=== PATIENT | male | born 1980 | race Caucasian/White ===

== ENCOUNTER 2021-12-12 20:09 | Emergency (ER) | payer BC ==
--- NOTE | 2021-12-12 20:16 | ERPHSYRPT ---
- History of Present Illness Time Seen by Provider: 12/12/21 20:16 Source: patient, family Exam Limitations: no limitations Physician History: This is a morbidly obese 41-year-old white male who is a vch-haubhdo-pbnyycijc diabetic and has had for years left upper quadrant fullness/tightness after eating. He has had bloating and belching and gassiness symptoms within 20 to 30 minutes after he eats. He has a history of hypertension but took himself off of his blood pressure medicine which he thinks was lisinopril, several years ago. He has an appointment to see a new primary care provider in December 2021. In the last few weeks he has noticed more frequent and more intense episodes of left upper quadrant and left lower chest tightness and fullness sensation with or without eating. In the last 3 to 4 days he has had associated shortness of breath and sleeps in an upright position in a recliner. He has not had a cough. He has no anterior chest pain. He has not had a fever. He has had no nausea vomiting or diarrhea symptoms. Patient denies headache. Patient denies visual changes. Timing/Duration: day(s) (Associated shortness of breath 3 to 4 days), week(s) (Worsening intermittent left upper quadrant tightness in the last 3 weeks), other (Symptoms of left upper quadrant left lower chest tightness for several years.) Severity: mild (To moderate) Associated Symptoms: abdominal pain (Left upper quadrant tightness), shortness of breath, No nausea, No vomiting, No cough, No fever Allergies/Adverse Reactions: No Known Drug Allergies Allergy (Verified 12/12/21 20:32) Home Medications: Aspirin EC 81 mg [Ecotrin 81 mg] 81 mg PO DAILY 12/12/21 [History] Metformin HCl 500 mg [Glucophage 500 MG] 500 mg PO HS 12/12/21 [History] [place]-3 Fatty Acids/Fish Oil [Fish Oil 1,000 mg Capsule] 1,000 mg PO DAILY 12/12/21 [History] Travel Risk - International Travel Have you traveled outside of the country in past 3 weeks: No - Coronavirus Screening Are you exhibiting any of the following symptoms?: No Close contact with a COVID-19 positive Pt in past 14-21 Days: No - Review of Systems Constitutional: No Symptoms Eyes: No Symptoms Ears, Nose, & Throat: No Symptoms Respiratory: No Symptoms Cardiac: No Symptoms Abdominal/Gastrointestinal: Abdominal Pain (Upper quadrant tightness) Genitourinary Symptoms: No Symptoms Musculoskeletal: No Symptoms Skin: No Symptoms Neurological: No Symptoms Psychological: No Symptoms Endocrine: No Symptoms Hematologic/Lymphatic: No Symptoms Immunological/Allergic: No Symptoms All Other Systems: Reviewed and Negative - Past Medical History Pertinent Past Medical History: Yes - Past Surgical History Past Surgical History: Yes - Nursing Vital Signs Nursing Vital Signs: Initial Vital Signs Temperature 99.8 F 12/12/21 20:13 Pulse Rate 109 H 12/12/21 20:13 Respiratory Rate 24 12/12/21 20:13 Blood Pressure 267/141 12/12/21 20:13 O2 Sat by Pulse Oximetry 95 12/12/21 20:13 Pain Scale Pain Intensity 4 - Physical Exam General Appearance: no apparent distress, alert, obese Eye Exam: PERRL/EOMI, eyes nml inspection Ears, Nose, Throat Exam: normal ENT inspection, moist mucous membranes Neck Exam: normal inspection, non-tender, supple, full range of motion Respiratory Exam: normal breath sounds, chest tenderness (Lower chest wall tightness), lungs clear, airway intact, No respiratory distress Cardiovascular Exam: normal peripheral pulses, tachycardia Gastrointestinal/Abdomen Exam: soft, normal bowel sounds, No tenderness Rectal Exam: not done Back Exam: normal inspection, normal range of motion, No CVA tenderness, No vertebral tenderness Extremity Exam: normal range of motion, pelvis stable, other (The skin of bilateral lower extremities is dry and cracking. He also has evidence of chronic venous stasis disease. 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 No comparison twelve-lead EKG available) Ordered Tests: Active Orders 24 hr Category Date Time Status EKG-ER Only STAT Care 12/12/21 20:24 Active IV Insertion STAT Care 12/12/21 20:24 Active CHEST 1 VIEW (PORTABLE) Stat Exams 12/12/21 20:25 Taken CHEST WITH CONTRAST [CT] Stat Exams 12/12/21 21:27 Taken AMYLASE Stat Lab 12/12/21 20:35 Completed CBC W DIFF Stat Lab 12/12/21 20:35 Completed CMP Stat Lab 12/12/21 20:35 Completed D-DIMER QUANTITATIVE Stat Lab 12/12/21 20:35 Completed LIPASE Stat Lab 12/12/21 20:35 Completed Lactic Acid Stat Lab 12/12/21 20:50 Completed TROPONIN Q4H Lab 12/12/21 20:35 Completed TROPONIN Q4H Lab 12/13/21 00:30 Ordered TROPONIN Q4H Lab 12/13/21 04:30 Ordered Respiratory Therapy Assessment DAILY RT 12/12/21 22:38 Active Medication Summary Discontinued Medications Generic Name Dose Route Start Last Admin Trade Name Freq PRN Reason Stop Dose Admin Albuterol Sulfate Confirm 12/12/21 22:29 Albuterol Sulfate 2.5 Mg/3 Ml Neb Administered 12/12/21 22:30 Dose 2.5 mg IH .STK-MED ONE Albuterol Sulfate 2.5 mg 12/12/21 22:38 12/12/21 22:39 Albuterol Sulfate 2.5 Mg/3 Ml Neb IH 12/12/21 22:39 2.5 mg STAT ONE Administration Enalaprilat 1.25 mg 12/12/21 22:27 12/12/21 23:12 Enalaprilat 2.5 Mg Injection IV 12/12/21 22:28 1.25 mg STAT ONE Administration Enalaprilat Confirm 12/12/21 23:10 Enalaprilat 2.5 Mg Injection Administered 12/12/21 23:11 Dose 2.5 mg IV .STK-MED ONE Sodium Chloride 500 mls @ 500 mls/hr 12/12/21 21:26 12/12/21 22:16 Sodium Chloride 0.9% 500 Ml IV 12/12/21 22:25 500 mls/hr .Q1H ONE Administration Sodium Chloride Confirm 12/12/21 21:56 Sodium Chloride 0.9% 500 Ml Administered 12/12/21 21:57 Dose 500 mls @ ud IV .STK-MED ONE Metoprolol Tartrate 5 mg 12/12/21 21:18 12/12/21 21:43 Metoprolol Tartrate 5 Mg/5 Ml Vial IV 12/12/21 21:19 5 mg STAT ONE Administration Metoprolol Tartrate Confirm 12/12/21 21:42 Metoprolol Tartrate 5 Mg/5 Ml Vial Administered 12/12/21 21:43 Dose 5 mg IV .STK-MED ONE Lab/Rad Data: Laboratory Result Diagrams 12/12/21 20:35 12/12/21 20:35 Laboratory Results 12/12/21 12/12/21 12/12/21 Range/Units 20:50 20:35 20:35 WBC (4.0-10.5) x10^3/uL RBC (4.1-5.6) x10^6/uL Hgb (12.5-18.0) g/dL Hct (42-50) % MCV (78-100) fL MCH (26-32) pg MCHC (32-36) g/dL RDW (11.5-14.0) % Plt Count (150-450) x10^3/uL MPV (7.5-11.0) fL Gran % (36.0-66.0) % Immature Gran % (Auto) (0.00-0.4) % Nucleat RBC Rel Count (0.00-0.1) % Eos # (Auto) (0-0.5) x10^3/uL Immature Gran # (Auto) (0.00-0.03) x10^3u/L Absolute Lymphs (auto) (1.0-4.6) x10^3/uL Absolute Monos (auto) (0.0-1.3) x10^3/uL Absolute Nucleated RBC (0.00-0.01) x10^3u/L Lymphocytes % (24.0-44.0) % Monocytes % (0.0-12.0) % Eosinophils % (0.00-5.0) % Basophils % (0.0-0.4) % Absolute Granulocytes (1.4-6.9) x10^3/uL Basophils # (0-0.4) x10^3/uL D-Dimer 1.07 H* (0.0-0.50) mg/L Sodium (137-145) mmol/L Potassium (3.5-5.1) mmol/L Chloride (98-107) mmol/L Carbon Dioxide (22-30) mmol/L Anion Gap (5-15) MEQ/L BUN (9-20) mg/dL Creatinine (0.66-1.25) mg/dL Estimated GFR ML/MIN Glucose (74-106) mg/dL Lactic Acid 1.3 (0.4-2.0) Calcium (8.4-10.2) mg/dL Total Bilirubin (0.2-1.3) mg/dL AST (17-59) U/L ALT (0-50) U/L Alkaline Phosphatase (38-126) U/L Troponin I 0.019 (0.000-0.034) ng/mL Serum Total Protein (6.3-8.2) g/dL Albumin (3.5-5.0) g/dL Amylase (30-110) U/L Lipase (23-300) U/L Influenza Type A Ag (NEGATIVE) Influenza Type B Ag (NEGATIVE) RSV (PCR) (Negative) SARS-CoV-2 (PCR) (NEGATIVE) 12/12/21 12/12/21 12/12/21 Range/Units 20:35 20:35 20:35 WBC 9.0 (4.0-10.5) x10^3/uL RBC 5.06 (4.1-5.6) x10^6/uL Hgb 15.0 (12.5-18.0) g/dL Hct 44.2 (42-50) % MCV 87.4 (78-100) fL MCH 29.6 (26-32) pg MCHC 33.9 (32-36) g/dL RDW 12.1 (11.5-14.0) % Plt Count 216 (150-450) x10^3/uL MPV 12.0 H (7.5-11.0) fL Gran % 67.0 H (36.0-66.0) % Immature Gran % (Auto) 0.3 (0.00-0.4) % Nucleat RBC Rel Count 0.0 (0.00-0.1) % Eos # (Auto) 0.45 (0-0.5) x10^3/uL Immature Gran # (Auto) 0.03 (0.00-0.03) x10^3u/L Absolute Lymphs (auto) 1.55 (1.0-4.6) x10^3/uL Absolute Monos (auto) 0.85 (0.0-1.3) x10^3/uL Absolute Nucleated RBC 0.00 (0.00-0.01) x10^3u/L Lymphocytes % 17.2 L (24.0-44.0) % Monocytes % 9.4 (0.0-12.0) % Eosinophils % 5.0 (0.00-5.0) % Basophils % 1.1 (0.0-0.4) % Absolute Granulocytes 6.05 (1.4-6.9) x10^3/uL Basophils # 0.10 (0-0.4) x10^3/uL D-Dimer (0.0-0.50) mg/L Sodium 133 L (137-145) mmol/L Potassium 3.4 L (3.5-5.1) mmol/L Chloride 97 L (98-107) mmol/L Carbon Dioxide 33 H (22-30) mmol/L Anion Gap 7.0 (5-15) MEQ/L BUN 16 (9-20) mg/dL Creatinine 0.91 (0.66-1.25) mg/dL Estimated GFR > 60.0 ML/MIN Glucose 377 H (74-106) mg/dL Lactic Acid (0.4-2.0) Calcium 8.6 (8.4-10.2) mg/dL Total Bilirubin 0.90 (0.2-1.3) mg/dL AST 46 (17-59) U/L ALT 79 H (0-50) U/L Alkaline Phosphatase 147 H (38-126) U/L Troponin I (0.000-0.034) ng/mL Serum Total Protein 7.4 (6.3-8.2) g/dL Albumin 3.9 (3.5-5.0) g/dL Amylase 51 (30-110) U/L Lipase 50 (23-300) U/L Influenza Type A Ag NEGATIVE (NEGATIVE) Influenza Type B Ag NEGATIVE (NEGATIVE) RSV (PCR) NEGATIVE (Negative) SARS-CoV-2 (PCR) NEGATIVE (NEGATIVE) - Progress Progress Note: 12/12/21 22:41 CTA of the chest shows some mildly enlarged mediastinal nodes. There is no evidence of pulmonary embolus. There is no acute cardiopulmonary process. 12/12/21 22:43 Chest x-ray shows no acute cardiopulmonary process. 12/12/21 23:29 Patient states that he is feeling better. He does not want to be admitted into the hospital or transferred to a different hospital. His blood pressure is improving. Patient states that he has to work and he works 7 days a week. I think this is reasonable. His blood pressure is coming down nicely and he is feeling better. Symptomatically he has improved. Counseled pt/family regarding: lab results, diagnosis, need for follow-up, rad results - Departure Departure Disposition: Home Clinical Impression: Hypertensive urgency, Morbid obesity, Hyperglycemia Condition: Stable Critical Care Time: Yes Critical Care Time(excluding separately billable procedures): Critical 30-74 mins (40 minutes) Referrals: DOCTOR,NO FAMILY [Primary Care Provider] - Follow up/PCP as directed Additional Instructions: Take your medication as prescribed. Monitor and control your blood sugar levels as instructed by your prescribing outpatient provider. Keep your appointment with your new outpatient provider January 09, 2022. Keep a log of your blood pressure measurements 3 times a day (morning noon and night) for 1 week. Take this log recording to your outpatient provider appointment. Prescriptions: Amlodipine Besylate 5 mg [Norvasc 5 mg] 5 mg PO DAILY 10 Days #10 tablet
[2021-12-12 20:42] LABS: Absolute Neutrophil Ct (ANC) 6.05 x10^3/uL (1.4-6.9); Eosinophil (Absolute #) 0.45 x10^3/uL (0-0.5); Hematocrit 44.2 % (42-50); Lymphocyte (Absolute #) 1.55 x10^3/uL (1.0-4.6); Lymphocytes % 17.2 % (24.0-44.0); Mean Cell Volume 87.4 fL (78-100); Mean Corpuscular Hemoglobin 29.6 pg (26-32); Mean Corpuscular Hgb Concent. 33.9 g/dL (32-36); Monocyte (Absolute #) 0.85 x10^3/uL (0.0-1.3); Monocytes % 9.4 % (0.0-12.0); Platelet Count 216 x10^3/uL (150-450); Red Blood Count 5.06 x10^6/uL (4.1-5.6); Red Cell Distribution Width 12.1 % (11.5-14.0)
[2021-12-12 20:56] LABS: ALBUMIN 3.9 g/dL (3.5-5.0); ALKALINE PHOSPHATASE 147 U/L (38-126); AMYLASE 51 U/L (30-110); BLOOD UREA NITROGEN 16 mg/dL (9-20); CHLORIDE 97 mmol/L (98-107); Calcium 8.6 mg/dL (8.4-10.2); Carbon Dioxide 33 mmol/L (22-30); Creatinine 1 0.91 mg/dL (0.66-1.25); EST GLOMERULAR FILTRATION RATE > 60.0 ML/MIN; Glucose 377 mg/dL (74-106); LIPASE 50 U/L (23-300); Potassium 3.4 mmol/L (3.5-5.1); SGOT/AST 46 U/L (17-59); SGPT/ALT 79 U/L (0-50); SODIUM 133 mmol/L (137-145); Total Protein 7.4 g/dL (6.3-8.2)
[2021-12-12 21:20] LABS: INFLUENZA A NEGATIVE (NEGATIVE); INFLUENZA B NEGATIVE (NEGATIVE); RESPIRATORY SYNCTIAL VIRUS NEGATIVE (Negative); SARS-CoV-2 Xpert Express NEGATIVE (NEGATIVE)
[2021-12-12] MEDS ORDERED: LOPRESSOR INJECTION IV ONE (21:42)
[2021-12-12] MEDS: LOPRESSOR INJECTION IV ONE (21:43)
[2021-12-12] MEDS ORDERED: Sodium Chloride 0.9% 500 ML 500 ML IV ONE (21:56)
[2021-12-12] MEDS: Sodium Chloride 0.9% 500 ML 500 ML IV ONE (22:16)
[2021-12-12] MEDS ORDERED: PROVENTIL 2.5 MG/3 ML NEB IH ONE (22:29)
[2021-12-12] MEDS: PROVENTIL 2.5 MG/3 ML NEB IH ONE (22:39)
[2021-12-12] MEDS ORDERED: ENALAPRILAT 2.5 MG INJECTION IV ONE (23:10)
[2021-12-12] MEDS: ENALAPRILAT 2.5 MG INJECTION IV ONE (23:12)
[2021-12-13 00:27] VITALS: BP 174/102; PULSE 96; O2SAT 96
--- NOTE | 2021-12-13 08:55 | XRAY ---
Indication: Short of breath. Elevated d-dimer. Multiple contiguous axial images obtained through the chest using 100 cc Isovue 370 contrast and PE protocol. Comparison: None Adequate opacification of the pulmonary arteries to include the lobar and segmental branches. No pulmonary embolus. Heart not enlarged. Aorta is normal in course and caliber. Several prominent mediastinal and bilateral hilar lymph nodes. Largest is subcarinal measuring 2.5 x 4.6 cm. Adenopathy may be reactive though malignancy not completely excluded. Incidental small hiatal hernia. Lungs inflated with minimal bibasilar interstitial edema. No suspicious pulmonary mass, infiltrate, consolidation, or effusion. Bony thorax intact with mild/moderate degenerative changes throughout the spine. Limited upper abdomen demonstrates fatty liver. Impression: 1. Negative pulmonary embolus. 2. Prominent mediastinal/hilar adenopathy either reactive versus malignancy. 3. Minimal interstitial edema. Negative for CHF or pneumonic process. 4. Incidental small hiatal hernia, degenerative spondylosis, and fatty liver.
--- NOTE | 2021-12-13 08:56 | XRAY ---
Indication: Short of breath. Comparison: None Portable chest demonstrates interstitial edema without consolidation/large effusion. Heart borderline enlarged. Bony thorax intact with mild degenerative changes.
== END 2021-12-13 00:25 | disposition home or self-care (01) ==
LOC: ED 20:09
DX: I16.0 Hypertensive urgency (principal); E11.65 Type 2 diabetes mellitus with hyperglycemia; R10.12 Left upper quadrant pain; E66.01 Morbid (severe) obesity due to excess calories; R07.89 Other chest pain; R59.9 Enlarged lymph nodes, unspecified; R06.02 Shortness of breath; Z79.899 Other long term (current) drug therapy
CPT/HCPCS: 0241U; 36000; 36415; 71045; 71260; 80053; 82150; 83605; 83690; 84484; 85025; 85379; 93005; 94640; 96374; 96375; 99291; 99284; J7609; A9270-GY

== ENCOUNTER 2021-12-13 14:55 | Observation (INO) | payer BC ==
[2021-12-13] MEDS ORDERED: TRANDATE 20 MG/4 ML SYRINGE IV ONE ×4 (15:17→16:17)
[2021-12-13] MEDS ORDERED: Lasix 40 MG/4 ML IV ONE (15:18)
[2021-12-13] MEDS ORDERED: Lasix 40 MG/4 ML ONE (15:22)
[2021-12-13 15:26] LABS: Absolute Neutrophil Ct (ANC) 5.22 x10^3/uL (1.4-6.9); Eosinophil % 5.4 % (0.00-5.0); Eosinophil (Absolute #) 0.45 x10^3/uL (0-0.5); Hematocrit 43.3 % (42-50); Hemoglobin 14.5 g/dL (12.5-18.0); Lymphocytes % 20.5 % (24.0-44.0); Mean Cell Volume 87.5 fL (78-100); Mean Corpuscular Hemoglobin 29.3 pg (26-32); Mean Corpuscular Hgb Concent. 33.5 g/dL (32-36); Mean Platelet Volume 11.5 fL (7.5-11.0); Monocyte (Absolute #) 0.81 x10^3/uL (0.0-1.3); Monocytes % 9.8 % (0.0-12.0); Neutrophil % 62.9 % (36.0-66.0); Platelet Count 205 x10^3/uL (150-450); Red Blood Count 4.95 x10^6/uL (4.1-5.6); Red Cell Distribution Width 12.3 % (11.5-14.0); White Blood Count 8.3 x10^3/uL (4.0-10.5)
--- NOTE | 2021-12-13 15:32 | ERPHSYRPT ---
- History of Present Illness Source: patient Exam Limitations: no limitations Patient Subjective Stated Complaint: PT states "I was here last night and I do not feel any better. I cannot breath and I am not any better." Triage Nursing Assessment: Pt presented alert and oriented X3, skin pwd. Pt ambulates with an upright steady gait, able to speak in clear full sentences pt unable to sit in bed. PT slightly tachypneic. Physician History: 41 yo WM who was seen and released from the ER last night presents for increasing dyspnea. Pt had a neg CTA chest last night. He has a h/o DM, morbid obesity, and hypertension. Pt has not taken any blood pressure meds x 5 years because of side effects. Blood pressure markedly elevated upon arrival, and he did not start the meds prescribed to him. He has chronic L lateral chest pain which is minimal and not accompanied by dyspnea, nausea, vomiting, or diaphoresis. Cough/coryza/melena/hematochezia/dysuria/hematuria/fever are all denied. states that pt becomes apneic when sleeping. Timing/Duration: other (Dyspnea x 2 wks) Activities at Onset: sleep Severity of Dyspnea-Max: moderate Severity of Dyspnea-Current: moderate Possible Cause: occasional episodes Modifying Factors: Improves With: lying down Associated Symptoms: chest pain/discomfort, edema, insomnia, No fever Allergies/Adverse Reactions: No Known Drug Allergies Allergy (Verified 12/13/21 15:07) Home Medications: Aspirin EC 81 mg [Ecotrin 81 mg] 81 mg PO DAILY 12/12/21 [History] Metformin HCl 500 mg [Glucophage 500 MG] 500 mg PO HS 12/12/21 [History] [place]-3 Fatty Acids/Fish Oil [Fish Oil 1,000 mg Capsule] 1,000 mg PO DAILY 12/12/21 [History] Hx Tetanus, Diphtheria Vaccination/Date Given: No Hx Influenza Vaccination/Date Given: No Hx Pneumococcal Vaccination/Date Given: No Immunizations Up to Date: Yes Travel Risk - International Travel Have you traveled outside of the country in past 3 weeks: No - Coronavirus Screening Are you exhibiting any of the following symptoms?: Yes Symptoms: Cough: New Onset, Shortness of Breath Close contact with a COVID-19 positive Pt in past 14-21 Days: No - Vaccine Status Have you recieved a Covid-19 vaccination: No - Review of Systems Constitutional: No Symptoms, Malaise Eyes: No Symptoms Ears, Nose, & Throat: No Symptoms Respiratory: No Symptoms, Dyspnea Cardiac: No Symptoms, Chest Pain Abdominal/Gastrointestinal: No Symptoms Genitourinary Symptoms: No Symptoms Musculoskeletal: No Symptoms Skin: No Symptoms Neurological: No Symptoms Psychological: No Symptoms Endocrine: No Symptoms Hematologic/Lymphatic: No Symptoms Immunological/Allergic: No Symptoms - Past Medical History Pertinent Past Medical History: Yes Cardiac History: Hypertension Endocrine Medical History: Diabetes Type II GI Medical History: GERD Other Medical History: sleep apnea - Past Surgical History Past Surgical History: No - Social History Smoking Status: Never smoker Exposure to second hand smoke: No Drug Use: none Patient Lives Alone: No Significant Family History: no pertinent family hx - Nursing Vital Signs Nursing Vital Signs: Initial Vital Signs Temperature 97.1 F 12/13/21 14:56 Pulse Rate 105 H 12/13/21 14:56 Respiratory Rate 24 12/13/21 14:56 Blood Pressure 204/130 12/13/21 14:56 O2 Sat by Pulse Oximetry 92 L 12/13/21 14:56 Pain Scale Pain Intensity 0 Tachy/hypertension/Borderline sats - Physical Exam General Appearance: mild distress, anxiety Eye Exam: PERRL/EOMI, eyes nml inspection Ears, Nose, Throat Exam: hearing grossly normal, normal ENT inspection, normal pharynx, No abnormal TM (R), No abnormal TM (L) Neck Exam: normal inspection, non-tender, supple, No Brudzinski, No Kernig's, No meningismus Respiratory Exam: airway intact, diminished breath sounds (Decreased BS at bases B) Cardiovascular/Chest Exam: normal heart sounds, tachycardia, No murmur Abdominal/Gastrointestinal Exam: soft, normal bowel sounds, No tenderness Extremity Exam: swelling (1+ B pre-tibial edema) Neurologic Exam: alert, oriented x 3, cooperative, 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, normal mood/affect, nml cerebellar function, nml station & gait, sensation nml Skin Exam: other (Chronic venous stasis changes B pre-tibial areas) Lymphatic Exam: No adenopathy SpO2 Interpretation: borderline oxygenation SpO2: 93 O2 Delivery: Room Air - Course Nursing assessment & vital signs reviewed: Yes EKG Interpreted by Me: RATE (Sinus tach/Rate 101/RBBB/LAFB/Prolonged QTc/Nonspecific ST-T wave changes/No change compared to 12/12/21) - Radiology Exams Chest X-ray Interpretation: Discussed w/ radiologist (Worsening pulmonary edema/R base infiltrate-atelectasis) Ordered Tests: Active Orders 24 hr Category Date Time Status EKG-ER Only STAT Care 12/13/21 15:08 Completed IV Insertion STAT Care 12/13/21 15:08 Completed Consistent Carbohydrate Diet 2000 Calorie Diet 12/14/21 Breakfast Active CHEST 1 VIEW (PORTABLE) Stat Exams 12/13/21 15:08 Completed CBC AM.LAB Lab 12/14/21 04:00 Ordered CBC W DIFF Stat Lab 12/13/21 15:15 Completed CMP AM.LAB Lab 12/15/21 04:00 Ordered CMP Stat Lab 12/13/21 15:15 Completed MAGNESIUM Stat Lab 12/13/21 15:15 Completed NT PRO BNP AM.LAB Lab 12/14/21 04:00 Ordered NT PRO BNP Stat Lab 12/13/21 15:15 Completed PROTIME WITH INR Stat Lab 12/13/21 15:15 Completed PTT Stat Lab 12/13/21 15:15 Completed TROPONIN Q4H Lab 12/13/21 15:21 Completed TROPONIN Q4H Lab 12/13/21 20:30 Ordered TROPONIN Q4H Lab 12/14/21 00:30 Ordered Transfer Order Routine Transfer 12/13/21 Completed Medication Summary Generic Name Dose Route Start Last Admin Trade Name Freq PRN Reason Stop Dose Admin Furosemide 40 mg 12/14/21 10:00 Furosemide 40 Mg/4 Ml Vial IV 01/13/22 09:59 BID DIURETIC LASHELL Insulin Human Lispro 0 unit 12/13/21 17:12 Insulin Lispro 1 Unit SQ 01/12/22 17:11 UD PRN HYPERGLYCEMIA Losartan Potassium 50 mg 12/13/21 22:00 Losartan Potassium 50 Mg Tablet PO 01/12/22 21:59 BID LASHELL Discontinued Medications Generic Name Dose Route Start Last Admin Trade Name Freq PRN Reason Stop Dose Admin Enoxaparin Sodium 40 mg 12/13/21 17:17 12/13/21 17:30 Enoxaparin Sodium 40 Mg/0.4 Ml Syringe SQ 12/13/21 17:18 40 mg STAT ONE Administration Enoxaparin Sodium Confirm 12/13/21 17:29 Enoxaparin Sodium 80 Mg/0.8 Ml Syringe Administered 12/13/21 17:30 Dose 80 mg SQ .STK-MED ONE Furosemide 40 mg 12/13/21 15:18 12/13/21 15:23 Furosemide 40 Mg/4 Ml Vial IV 12/13/21 15:19 40 mg STAT ONE Administration Furosemide Confirm 12/13/21 15:22 Furosemide 40 Mg/4 Ml Vial Administered 12/13/21 15:23 Dose 40 mg .ROUTE .STK-MED ONE Labetalol HCl 20 mg 12/13/21 15:17 12/13/21 15:23 Labetalol Hcl 20 Mg/4 Ml Disp.Syringe IV 12/13/21 15:18 20 mg STAT ONE Administration Labetalol HCl Confirm 12/13/21 15:22 Labetalol Hcl 20 Mg/4 Ml Disp.Syringe Administered 12/13/21 15:23 Dose 20 mg IV .STK-MED ONE Labetalol HCl 40 mg 12/13/21 16:13 12/13/21 17:07 Labetalol Hcl 20 Mg/4 Ml Disp.Syringe IV 12/13/21 16:14 Not Given STAT ONE Labetalol HCl Confirm 12/13/21 16:17 Labetalol Hcl 20 Mg/4 Ml Disp.Syringe Administered 12/13/21 16:18 Dose 40 mg IV .STK-MED ONE Lisinopril 10 mg 12/13/21 17:11 12/13/21 17:31 Lisinopril 10 Mg Tablet PO 12/13/21 17:12 Not Given STAT STA Lisinopril 10 mg 12/14/21 10:00 Lisinopril 10 Mg Tablet PO 01/13/22 09:59 DAILY [facility] Losartan Potassium 50 mg 12/14/21 10:00 Losartan Potassium 50 Mg Tablet PO 01/13/22 09:59 DAILY [facility] Lab/Rad Data: Laboratory Result Diagrams 12/13/21 15:15 12/13/21 15:15 Laboratory Results 12/13/21 12/13/21 12/13/21 Range/Units 15:21 15:15 15:15 WBC (4.0-10.5) x10^3/uL RBC (4.1-5.6) x10^6/uL Hgb (12.5-18.0) g/dL Hct (42-50) % MCV (78-100) fL MCH (26-32) pg MCHC (32-36) g/dL RDW (11.5-14.0) % Plt Count (150-450) x10^3/uL MPV (7.5-11.0) fL Gran % (36.0-66.0) % Immature Gran % (Auto) (0.00-0.4) % Nucleat RBC Rel Count (0.00-0.1) % Eos # (Auto) (0-0.5) x10^3/uL Immature Gran # (Auto) (0.00-0.03) x10^3u/L Absolute Lymphs (auto) (1.0-4.6) x10^3/uL Absolute Monos (auto) (0.0-1.3) x10^3/uL Absolute Nucleated RBC (0.00-0.01) x10^3u/L Lymphocytes % (24.0-44.0) % Monocytes % (0.0-12.0) % Eosinophils % (0.00-5.0) % Basophils % (0.0-0.4) % Absolute Granulocytes (1.4-6.9) x10^3/uL Basophils # (0-0.4) x10^3/uL PT 10.9 (9.4-12.5) SECONDS INR 1.03 (0.8-3.0) APTT 23.8 L (25.1-36.5) SECONDS Sodium 133 L (137-145) mmol/L Potassium 3.8 (3.5-5.1) mmol/L Chloride 100 (98-107) mmol/L Carbon Dioxide 33 H (22-30) mmol/L Anion Gap 3.2 L (5-15) MEQ/L BUN 15 (9-20) mg/dL Creatinine 0.88 (0.66-1.25) mg/dL Estimated GFR > 60.0 ML/MIN Glucose 321 H (74-106) mg/dL Calcium 8.2 L (8.4-10.2) mg/dL Magnesium 1.9 (1.6-2.3) mg/dL Total Bilirubin 0.80 (0.2-1.3) mg/dL AST 72 H (17-59) U/L ALT 100 H (0-50) U/L Alkaline Phosphatase 117 (38-126) U/L Troponin I 0.013 (0.000-0.034) ng/mL NT-Pro-B Natriuret Pep 919 H (0-450) pg/mL Serum Total Protein 7.1 (6.3-8.2) g/dL Albumin 3.9 (3.5-5.0) g/dL 12/13/21 Range/Units 15:15 WBC 8.3 (4.0-10.5) x10^3/uL RBC 4.95 (4.1-5.6) x10^6/uL Hgb 14.5 (12.5-18.0) g/dL Hct 43.3 (42-50) % MCV 87.5 (78-100) fL MCH 29.3 (26-32) pg MCHC 33.5 (32-36) g/dL RDW 12.3 (11.5-14.0) % Plt Count 205 (150-450) x10^3/uL MPV 11.5 H (7.5-11.0) fL Gran % 62.9 (36.0-66.0) % Immature Gran % (Auto) 0.2 (0.00-0.4) % Nucleat RBC Rel Count 0.0 (0.00-0.1) % Eos # (Auto) 0.45 (0-0.5) x10^3/uL Immature Gran # (Auto) 0.02 (0.00-0.03) x10^3u/L Absolute Lymphs (auto) 1.70 (1.0-4.6) x10^3/uL Absolute Monos (auto) 0.81 (0.0-1.3) x10^3/uL Absolute Nucleated RBC 0.00 (0.00-0.01) x10^3u/L Lymphocytes % 20.5 L (24.0-44.0) % Monocytes % 9.8 (0.0-12.0) % Eosinophils % 5.4 H (0.00-5.0) % Basophils % 1.2 (0.0-0.4) % Absolute Granulocytes 5.22 (1.4-6.9) x10^3/uL Basophils # 0.10 (0-0.4) x10^3/uL PT (9.4-12.5) SECONDS INR (0.8-3.0) APTT (25.1-36.5) SECONDS Sodium (137-145) mmol/L Potassium (3.5-5.1) mmol/L Chloride (98-107) mmol/L Carbon Dioxide (22-30) mmol/L Anion Gap (5-15) MEQ/L BUN (9-20) mg/dL Creatinine (0.66-1.25) mg/dL Estimated GFR ML/MIN Glucose (74-106) mg/dL Calcium (8.4-10.2) mg/dL Magnesium (1.6-2.3) mg/dL Total Bilirubin (0.2-1.3) mg/dL AST (17-59) U/L ALT (0-50) U/L Alkaline Phosphatase (38-126) U/L Troponin I (0.000-0.034) ng/mL NT-Pro-B Natriuret Pep (0-450) pg/mL Serum Total Protein (6.3-8.2) g/dL Albumin (3.5-5.0) g/dL - Progress Progress: improved Progress Note: 12/13/21 17:34 Pt's BP markedly decreased w 20mg IV Labetalol 40mg IV Lasix Obs per Dr. Juan Discussed with : Missy Counseled pt/family regarding: lab results, diagnosis, need for follow-up, rad results - Departure Departure Disposition: Observation Clinical Impression: CHF (congestive heart failure), Hypertensive urgency Condition: Stable Critical Care Time: No
[2021-12-13 15:51] LABS: INR 1.03 (0.8-3.0); PROTIME 10.9 SECONDS (9.4-12.5); PTT 23.8 SECONDS (25.1-36.5)
[2021-12-13 15:57] LABS: ALBUMIN 3.9 g/dL (3.5-5.0); ALKALINE PHOSPHATASE 117 U/L (38-126); ANION GAP 3.2 MEQ/L (5-15); BLOOD UREA NITROGEN 15 mg/dL (9-20); CHLORIDE 100 mmol/L (98-107); Calcium 8.2 mg/dL (8.4-10.2); Carbon Dioxide 33 mmol/L (22-30); Creatinine 1 0.88 mg/dL (0.66-1.25); EST GLOMERULAR FILTRATION RATE > 60.0 ML/MIN; Glucose 321 mg/dL (74-106); MAGNESIUM 1.9 mg/dL (1.6-2.3); NT PRO BNP 919 pg/mL (0-450); Potassium 3.8 mmol/L (3.5-5.1); SGOT/AST 72 U/L (17-59); SGPT/ALT 100 U/L (0-50); SODIUM 133 mmol/L (137-145); Total Protein 7.1 g/dL (6.3-8.2)
--- NOTE | 2021-12-13 16:17 | XRAY ---
Indication: Chest pain and dyspnea. Comparison: One day earlier Portable chest demonstrates worsening diffuse interstitial pulmonary edema without consolidation/large effusion and new mild right base infiltrate/atelectasis. Heart remains borderline enlarged. Remaining chest unchanged.
[2021-12-13] MEDS ORDERED: Zestril 10 MG PO STA (17:11)
[2021-12-13] MEDS ORDERED: ENOXAPARIN SODIUM SQ ONE ×2 (17:17→17:29)
[2021-12-13] MEDS ORDERED: APRESOLINE 20 MG/ML INJ IV PRN (20:45)
[2021-12-13] MEDS ORDERED: APRESOLINE 20 MG/ML INJ ONE (20:58)
[2021-12-13] MEDS: Cozaar 50 MG PO SCH (21:06)
[2021-12-13] MEDS: HUMALOG SQ PRN (21:15)
[2021-12-14] MEDS: APRESOLINE 20 MG/ML INJ IV PRN (01:31)
[2021-12-14 04:40] LABS: Hematocrit 42.7 % (42-50); Mean Cell Volume 89.3 fL (78-100); Mean Corpuscular Hemoglobin 29.3 pg (26-32); Mean Corpuscular Hgb Concent. 32.8 g/dL (32-36); Mean Platelet Volume 11.6 fL (7.5-11.0); Platelet Count 208 x10^3/uL (150-450); Red Blood Count 4.78 x10^6/uL (4.1-5.6); Red Cell Distribution Width 12.4 % (11.5-14.0); White Blood Count 8.7 x10^3/uL (4.0-10.5)
[2021-12-14] MEDS ORDERED: NORVASC 5 MG PO ONE (08:04)
[2021-12-14] MEDS: HUMALOG SQ PRN ×2 (08:14→22:17)
--- NOTE | 2021-12-14 08:59 | PCM.HP ---
History of Present Illness - Chief Complaint Chief Complaint: shortness of breath History of Present Illness: is a 41 year old morbidly obese male who presented to the ER with shortness of breath, he has a remote history of hypertension but hasn't been on treatment for the last 3 years. His dyspnea has resolved since admission, he denies headache or chest pain, he was admitted with hypertensive urgency. - Review of Systems Constitutional: No Fever, No Chills Respiratory: No Cough, No Short Of Breath Cardiac: No Chest Pain, No Edema, No Syncope Abdominal/Gastrointestinal: No Abdominal Pain, No Nausea, No Vomiting, No Diarrhea Genitourinary Symptoms: No Dysuria All Other Systems: Reviewed and Negative Medications & Allergies Home Medications: Home Medication List Aspirin EC 81 mg [Ecotrin 81 mg] 81 mg PO DAILY 12/12/21 [History Confirmed 12/13/21] Metformin HCl 500 mg [Glucophage 500 MG] 500 mg PO HS 12/12/21 [History Confirmed 12/13/21] Maurice-3 Fatty Acids/Fish Oil [Fish Oil 1,000 mg Capsule] 1,000 mg PO DAILY 12/12/21 [History Confirmed 12/13/21] Allergies/Adverse Reactions: Allergies Allergy/AdvReac Type Severity Reaction Status Date / Time No Known Drug Allergies Allergy Verified 12/13/21 15:07 - Past Medical History Past Medical History: Yes Neurological History: No Pertinent History Cardiac History: Hypertension Respiratory History: Asthma, Sleep Apnea Endocrine Medical History: Diabetes Type II Musculoskelatal History: No Pertinent History GI Medical History: GERD History: No Pertinent History Male Reproductive Disorders: No Pertinent History Comment: sleep apnea - Past Surgical History Past Surgical History: No - Social History Smoking Status: Never smoker Exposure to second hand smoke: No Alcohol: Daily Drug Use: none Significant Family History: no pertinent family hx - Physical Exam Vital Signs: Vital Signs - 24 hr Temp Pulse Resp BP Pulse Ox 12/14/21 07:31 94 L 12/14/21 04:28 98.2 F 93 H 20 177/104 93 L 12/14/21 01:16 180/108 12/14/21 00:00 97.7 F 92 H 19 192/102 98 12/13/21 22:15 95 12/13/21 20:00 98.4 F 95 H 16 185/110 95 12/13/21 19:37 93 L 12/13/21 18:01 98.0 F 95 H 20 185/110 95 12/13/21 17:14 98.4 F 86 18 185/110 95 12/13/21 17:07 85 18 113/82 95 12/13/21 16:00 82 20 159/126 94 L 12/13/21 14:56 97.1 F 105 H 32 H 204/130 93 L General Appearance: no apparent distress, alert, obese Neurologic Exam: alert, oriented x 3 Respiratory Exam: normal breath sounds, lungs clear, No respiratory distress Cardiovascular Exam: regular rate/rhythm, normal heart sounds, normal peripheral pulses Gastrointestinal/Abdomen Exam: soft, normal bowel sounds, No tenderness, No mass Skin Exam: normal color, warm, dry, No rash Results - Labs Lab/Micro Results: Lab Results-Last 24 Hours 12/13/21 12/13/21 12/13/21 Range/Units 15:15 15:15 15:15 WBC 8.3 (4.0-10.5) x10^3/uL RBC 4.95 (4.1-5.6) x10^6/uL Hgb 14.5 (12.5-18.0) g/dL Hct 43.3 (42-50) % MCV 87.5 (78-100) fL MCH 29.3 (26-32) pg MCHC 33.5 (32-36) g/dL RDW 12.3 (11.5-14.0) % Plt Count 205 (150-450) x10^3/uL MPV 11.5 H (7.5-11.0) fL Gran % 62.9 (36.0-66.0) % Immature Gran % (Auto) 0.2 (0.00-0.4) % Nucleat RBC Rel Count 0.0 (0.00-0.1) % Eos # (Auto) 0.45 (0-0.5) x10^3/uL Immature Gran # (Auto) 0.02 (0.00-0.03) x10^3u/L Absolute Lymphs (auto) 1.70 (1.0-4.6) x10^3/uL Absolute Monos (auto) 0.81 (0.0-1.3) x10^3/uL Absolute Nucleated RBC 0.00 (0.00-0.01) x10^3u/L Lymphocytes % 20.5 L (24.0-44.0) % Monocytes % 9.8 (0.0-12.0) % Eosinophils % 5.4 H (0.00-5.0) % Basophils % 1.2 (0.0-0.4) % Absolute Granulocytes 5.22 (1.4-6.9) x10^3/uL Basophils # 0.10 (0-0.4) x10^3/uL PT 10.9 (9.4-12.5) SECONDS INR 1.03 (0.8-3.0) APTT 23.8 L (25.1-36.5) SECONDS Sodium 133 L (137-145) mmol/L Potassium 3.8 (3.5-5.1) mmol/L Chloride 100 (98-107) mmol/L Carbon Dioxide 33 H (22-30) mmol/L Anion Gap 3.2 L (5-15) MEQ/L BUN 15 (9-20) mg/dL Creatinine 0.88 (0.66-1.25) mg/dL Estimated GFR > 60.0 ML/MIN Glucose 321 H (74-106) mg/dL POC Glucometer (74 to 106) mg/dL Calcium 8.2 L (8.4-10.2) mg/dL Magnesium 1.9 (1.6-2.3) mg/dL Total Bilirubin 0.80 (0.2-1.3) mg/dL AST 72 H (17-59) U/L ALT 100 H (0-50) U/L Alkaline Phosphatase 117 (38-126) U/L Troponin I (0.000-0.034) ng/mL NT-Pro-B Natriuret Pep 919 H (0-450) pg/mL Serum Total Protein 7.1 (6.3-8.2) g/dL Albumin 3.9 (3.5-5.0) g/dL 12/13/21 12/13/21 12/13/21 Range/Units 15:21 20:25 20:47 WBC (4.0-10.5) x10^3/uL RBC (4.1-5.6) x10^6/uL Hgb (12.5-18.0) g/dL Hct (42-50) % MCV (78-100) fL MCH (26-32) pg MCHC (32-36) g/dL RDW (11.5-14.0) % Plt Count (150-450) x10^3/uL MPV (7.5-11.0) fL Gran % (36.0-66.0) % Immature Gran % (Auto) (0.00-0.4) % Nucleat RBC Rel Count (0.00-0.1) % Eos # (Auto) (0-0.5) x10^3/uL Immature Gran # (Auto) (0.00-0.03) x10^3u/L Absolute Lymphs (auto) (1.0-4.6) x10^3/uL Absolute Monos (auto) (0.0-1.3) x10^3/uL Absolute Nucleated RBC (0.00-0.01) x10^3u/L Lymphocytes % (24.0-44.0) % Monocytes % (0.0-12.0) % Eosinophils % (0.00-5.0) % Basophils % (0.0-0.4) % Absolute Granulocytes (1.4-6.9) x10^3/uL Basophils # (0-0.4) x10^3/uL PT (9.4-12.5) SECONDS INR (0.8-3.0) APTT (25.1-36.5) SECONDS Sodium (137-145) mmol/L Potassium (3.5-5.1) mmol/L Chloride (98-107) mmol/L Carbon Dioxide (22-30) mmol/L Anion Gap (5-15) MEQ/L BUN (9-20) mg/dL Creatinine (0.66-1.25) mg/dL Estimated GFR ML/MIN Glucose (74-106) mg/dL POC Glucometer 323 H (74 to 106) mg/dL Calcium (8.4-10.2) mg/dL Magnesium (1.6-2.3) mg/dL Total Bilirubin (0.2-1.3) mg/dL AST (17-59) U/L ALT (0-50) U/L Alkaline Phosphatase (38-126) U/L Troponin I 0.013 0.014 (0.000-0.034) ng/mL NT-Pro-B Natriuret Pep (0-450) pg/mL Serum Total Protein (6.3-8.2) g/dL Albumin (3.5-5.0) g/dL 12/14/21 12/14/21 12/14/21 Range/Units 04:20 04:20 04:20 WBC 8.7 (4.0-10.5) x10^3/uL RBC 4.78 (4.1-5.6) x10^6/uL Hgb 14.0 (12.5-18.0) g/dL Hct 42.7 (42-50) % MCV 89.3 (78-100) fL MCH 29.3 (26-32) pg MCHC 32.8 (32-36) g/dL RDW 12.4 (11.5-14.0) % Plt Count 208 (150-450) x10^3/uL MPV 11.6 H (7.5-11.0) fL Gran % (36.0-66.0) % Immature Gran % (Auto) (0.00-0.4) % Nucleat RBC Rel Count (0.00-0.1) % Eos # (Auto) (0-0.5) x10^3/uL Immature Gran # (Auto) (0.00-0.03) x10^3u/L Absolute Lymphs (auto) (1.0-4.6) x10^3/uL Absolute Monos (auto) (0.0-1.3) x10^3/uL Absolute Nucleated RBC (0.00-0.01) x10^3u/L Lymphocytes % (24.0-44.0) % Monocytes % (0.0-12.0) % Eosinophils % (0.00-5.0) % Basophils % (0.0-0.4) % Absolute Granulocytes (1.4-6.9) x10^3/uL Basophils # (0-0.4) x10^3/uL PT (9.4-12.5) SECONDS INR (0.8-3.0) APTT (25.1-36.5) SECONDS Sodium (137-145) mmol/L Potassium (3.5-5.1) mmol/L Chloride (98-107) mmol/L Carbon Dioxide (22-30) mmol/L Anion Gap (5-15) MEQ/L BUN (9-20) mg/dL Creatinine (0.66-1.25) mg/dL Estimated GFR ML/MIN Glucose (74-106) mg/dL POC Glucometer (74 to 106) mg/dL Calcium (8.4-10.2) mg/dL Magnesium (1.6-2.3) mg/dL Total Bilirubin (0.2-1.3) mg/dL AST (17-59) U/L ALT (0-50) U/L Alkaline Phosphatase (38-126) U/L Troponin I < 0.012 (0.000-0.034) ng/mL NT-Pro-B Natriuret Pep 748 H (0-450) pg/mL Serum Total Protein (6.3-8.2) g/dL Albumin (3.5-5.0) g/dL 12/14/21 Range/Units 07:16 WBC (4.0-10.5) x10^3/uL RBC (4.1-5.6) x10^6/uL Hgb (12.5-18.0) g/dL Hct (42-50) % MCV (78-100) fL MCH (26-32) pg MCHC (32-36) g/dL RDW (11.5-14.0) % Plt Count (150-450) x10^3/uL MPV (7.5-11.0) fL Gran % (36.0-66.0) % Immature Gran % (Auto) (0.00-0.4) % Nucleat RBC Rel Count (0.00-0.1) % Eos # (Auto) (0-0.5) x10^3/uL Immature Gran # (Auto) (0.00-0.03) x10^3u/L Absolute Lymphs (auto) (1.0-4.6) x10^3/uL Absolute Monos (auto) (0.0-1.3) x10^3/uL Absolute Nucleated RBC (0.00-0.01) x10^3u/L Lymphocytes % (24.0-44.0) % Monocytes % (0.0-12.0) % Eosinophils % (0.00-5.0) % Basophils % (0.0-0.4) % Absolute Granulocytes (1.4-6.9) x10^3/uL Basophils # (0-0.4) x10^3/uL PT (9.4-12.5) SECONDS INR (0.8-3.0) APTT (25.1-36.5) SECONDS Sodium (137-145) mmol/L Potassium (3.5-5.1) mmol/L Chloride (98-107) mmol/L Carbon Dioxide (22-30) mmol/L Anion Gap (5-15) MEQ/L BUN (9-20) mg/dL Creatinine (0.66-1.25) mg/dL Estimated GFR ML/MIN Glucose (74-106) mg/dL POC Glucometer 304 H (74 to 106) mg/dL Calcium (8.4-10.2) mg/dL Magnesium (1.6-2.3) mg/dL Total Bilirubin (0.2-1.3) mg/dL AST (17-59) U/L ALT (0-50) U/L Alkaline Phosphatase (38-126) U/L Troponin I (0.000-0.034) ng/mL NT-Pro-B Natriuret Pep (0-450) pg/mL Serum Total Protein (6.3-8.2) g/dL Albumin (3.5-5.0) g/dL Accuchecks Date 12/14/21 Date 12/13/21 Time 21:00 - Radiology Impressions Radiology Exams & Impressions: Radiology Procedures Category Date Time Status CHEST 1 VIEW (PORTABLE) Stat Exams 12/13/21 15:08 Completed ECHO W/2D AND DOPPLER [US] Routine Exams 12/14/21 10:00 Ordered - Other Procedures and Tests Respiratory Therapy 12/13/21 17:12 Oxygen NASAL CANNULA 2 lpm Assessment/Plan (1) Hypertensive urgency Current Visit: Yes Status: Acute Assessment & Plan: losartan 50mg bid and added amlodipine 5mg daily today, will monitor. can likely discharge when bp is reasonably controlled Code(s): I16.0 - HYPERTENSIVE URGENCY (2) CHF (congestive heart failure) Current Visit: Yes Status: Acute Assessment & Plan: appears euvolemic, dyspnea is resolved and he is on room air. started on arb and added amlodipine this am Code(s): I50.9 - HEART FAILURE, UNSPECIFIED
[2021-12-14] MEDS: Cozaar 50 MG PO SCH ×2 (09:58→20:51)
[2021-12-14] MEDS: Lasix 40 MG/4 ML IV SCH ×2 (09:58→16:50)
[2021-12-14] MEDS: ECOTRIN 81 MG PO SCH (09:59)
[2021-12-14] MEDS ORDERED: Zestril 10 MG PO SCH (10:00)
[2021-12-14] MEDS ORDERED: Cozaar 50 MG PO SCH (10:00)
[2021-12-14] MEDS: CLONIDINE 0.1 MG TABLET PO SCH ×2 (15:22→20:50)
[2021-12-15 05:07] LABS: ALBUMIN 3.8 g/dL (3.5-5.0); ALKALINE PHOSPHATASE 111 U/L (38-126); ANION GAP 5.2 MEQ/L (5-15); BLOOD UREA NITROGEN 20 mg/dL (9-20); CHLORIDE 96 mmol/L (98-107); Calcium 8.6 mg/dL (8.4-10.2); Carbon Dioxide 37 mmol/L (22-30); Creatinine 1 1.01 mg/dL (0.66-1.25); EST GLOMERULAR FILTRATION RATE > 60.0 ML/MIN; Glucose 279 mg/dL (74-106); Potassium 3.4 mmol/L (3.5-5.1); SGOT/AST 53 U/L (17-59); SGPT/ALT 81 U/L (0-50); SODIUM 135 mmol/L (137-145); Total Protein 7.3 g/dL (6.3-8.2)
[2021-12-15] MEDS: APRESOLINE 20 MG/ML INJ IV PRN ×3 (07:30→20:08)
--- NOTE | 2021-12-15 08:36 | PCM.NOTE ---
Date and Time: 12/15/21830 Subjective Assessment: breathing is improved, he is able to move around his room and does not feel short of breath. feels good this morning, he is anxious to go home. realizes his bp is still high today Objective Exam General Appearance: no apparent distress, obese Neurologic Exam: alert, oriented x 3 Respiratory Exam: normal breath sounds, lungs clear, No respiratory distress Cardiovascular Exam: regular rate/rhythm, normal heart sounds Gastrointestinal/Abdomen Exam: soft, No tenderness, No mass OBJECTIVE DATA Vital Signs: Vital Signs - 24 hr Temp Pulse Resp BP Pulse Ox 12/15/21 07:32 97.9 F 78 16 182/109 94 L 12/15/21 07:17 96 12/15/21 04:00 97.1 F 83 18 179/100 95 12/14/21 23:57 97.2 F 78 17 174/92 97 12/14/21 20:00 97.8 F 87 16 175/88 97 12/14/21 19:37 93 L 12/14/21 16:00 97.3 F 89 18 177/106 94 L 12/14/21 12:11 184/102 12/14/21 08:56 97.5 F 91 H 18 184/106 92 L Pain Assessment - Last Documented Pain Intensity 0 Intake and Output: Intake & Output 12/12/21 12/13/21 12/14/21 12/15/21 11:59 11:59 11:59 11:59 Intake Total 360 960 Output Total 0 Balance 360 960 Weight 189 kg Lab Results: Lab Results-Last 24 Hours 12/14/21 12/14/21 12/14/21 Range/Units 11:44 16:17 21:56 Sodium (137-145) mmol/L Potassium (3.5-5.1) mmol/L Chloride (98-107) mmol/L Carbon Dioxide (22-30) mmol/L Anion Gap (5-15) MEQ/L BUN (9-20) mg/dL Creatinine (0.66-1.25) mg/dL Estimated GFR ML/MIN Glucose (74-106) mg/dL POC Glucometer 299 H 283 H 355 H (74 to 106) mg/dL Hemoglobin A1c (4.5-6.0) % Calcium (8.4-10.2) mg/dL Total Bilirubin (0.2-1.3) mg/dL AST (17-59) U/L ALT (0-50) U/L Alkaline Phosphatase (38-126) U/L Serum Total Protein (6.3-8.2) g/dL Albumin (3.5-5.0) g/dL 12/15/21 12/15/21 12/15/21 Range/Units 04:50 04:50 07:28 Sodium 135 L (137-145) mmol/L Potassium 3.4 L (3.5-5.1) mmol/L Chloride 96 L (98-107) mmol/L Carbon Dioxide 37 H (22-30) mmol/L Anion Gap 5.2 (5-15) MEQ/L BUN 20 (9-20) mg/dL Creatinine 1.01 (0.66-1.25) mg/dL Estimated GFR > 60.0 ML/MIN Glucose 279 H (74-106) mg/dL POC Glucometer 253 H (74 to 106) mg/dL Hemoglobin A1c 10.84 H (4.5-6.0) % Calcium 8.6 (8.4-10.2) mg/dL Total Bilirubin 1.00 (0.2-1.3) mg/dL AST 53 (17-59) U/L ALT 81 H (0-50) U/L Alkaline Phosphatase 111 (38-126) U/L Serum Total Protein 7.3 (6.3-8.2) g/dL Albumin 3.8 (3.5-5.0) g/dL Radiology Exams: Radiology Procedures Category Date Time Status CHEST 1 VIEW (PORTABLE) Stat Exams 12/13/21 15:08 Completed ECHO W/2D AND DOPPLER [US] Routine Exams 12/14/21 10:00 Taken Assessment/Plan (1) Hypertensive urgency Current Visit: Yes Status: Acute Assessment & Plan: increase amlodipine from 5mg to 10mg daily this am, increase clonidine from 0.1 to 0.2mg bid and continue losartan 100mg daily. patient will certainly need an outpatient sleep study upon discharge with episodes of dyspnea in the night. Code(s): I16.0 - HYPERTENSIVE URGENCY (2) CHF (congestive heart failure) Current Visit: Yes Status: Acute Assessment & Plan: I/O are not documented accurately obviously but clinically he has diuresed and symptoms are improved. echo pending, prelim report is limited due to body habitus but estimated EF >60% reassuring Code(s): I50.9 - HEART FAILURE, UNSPECIFIED
[2021-12-15] MEDS: ECOTRIN 81 MG PO SCH (08:51)
[2021-12-15] MEDS: NORVASC 5 MG PO SCH (08:51)
[2021-12-15] MEDS: Lasix 40 MG PO SCH (08:51)
[2021-12-15] MEDS: Cozaar 50 MG PO SCH ×2 (08:51→21:02)
[2021-12-15] MEDS: Klor Con PO SCH ×2 (08:51→21:05)
[2021-12-15] MEDS: CLONIDINE 0.1 MG TABLET PO SCH ×2 (08:51→21:02)
[2021-12-15] MEDS ORDERED: NORVASC 5 MG PO SCH (10:00)
[2021-12-15] MEDS ORDERED: MOTRIN 600 MG PO PRN (20:48)
[2021-12-15] MEDS: HUMALOG SQ PRN (21:09)
[2021-12-16 05:56] LABS: Absolute Neutrophil Ct (ANC) 4.19 x10^3/uL (1.4-6.9); Basophil (Absolute #) 0.08 x10^3/uL (0-0.4); Eosinophil % 7.7 % (0.00-5.0); Eosinophil (Absolute #) 0.56 x10^3/uL (0-0.5); Hematocrit 43.9 % (42-50); Hemoglobin 14.4 g/dL (12.5-18.0); Lymphocyte (Absolute #) 1.45 x10^3/uL (1.0-4.6); Lymphocytes % 19.9 % (24.0-44.0); Mean Cell Volume 89.4 fL (78-100); Mean Corpuscular Hemoglobin 29.3 pg (26-32); Mean Corpuscular Hgb Concent. 32.8 g/dL (32-36); Monocyte (Absolute #) 0.97 x10^3/uL (0.0-1.3); Monocytes % 13.3 % (0.0-12.0); Neutrophil % 57.6 % (36.0-66.0); Platelet Count 219 x10^3/uL (150-450); Red Blood Count 4.91 x10^6/uL (4.1-5.6); Red Cell Distribution Width 12.6 % (11.5-14.0); White Blood Count 7.3 x10^3/uL (4.0-10.5)
[2021-12-16 06:01] LABS: ANION GAP 7.7 MEQ/L (5-15); BLOOD UREA NITROGEN 19 mg/dL (9-20); CHLORIDE 100 mmol/L (98-107); Calcium 8.7 mg/dL (8.4-10.2); Carbon Dioxide 31 mmol/L (22-30); Creatinine 1 0.81 mg/dL (0.66-1.25); EST GLOMERULAR FILTRATION RATE > 60.0 ML/MIN; Glucose 272 mg/dL (74-106); NT PRO BNP 186 pg/mL (0-450); Potassium 3.6 mmol/L (3.5-5.1); SODIUM 135 mmol/L (137-145)
[2021-12-16 07:27] VITALS: O2SAT 92
[2021-12-16] MEDS ORDERED: MOTRIN 600 MG PO PRN (07:30)
[2021-12-16] MEDS: NORVASC 5 MG PO SCH (08:20)
[2021-12-16] MEDS: Klor Con PO SCH (08:21)
[2021-12-16] MEDS: ECOTRIN 81 MG PO SCH (08:21)
[2021-12-16] MEDS: CLONIDINE 0.1 MG TABLET PO SCH (08:21)
[2021-12-16] MEDS: Lasix 40 MG PO SCH (08:21)
[2021-12-16] MEDS: Cozaar 50 MG PO SCH (08:21)
[2021-12-16 11:56] VITALS: BP 151/85; PULSE 86
--- NOTE | 2021-12-16 12:57 | PCM.DS ---
Discharge Summary Date of Admission: 12/13/21 17:39 Admitting Physician: DIALLO HENDRIX Primary Care Provider: NO FAMILY DOCTOR Allergies Allergies No Known Drug Allergies Allergy (Verified 12/13/21 15:07) Hospital Summary - Hospital Course Hospital Course: patient was admitted with shortness of breath, headache and accelerated hypertension. treated for chf and hypertensive urgency. bp is improved and he diuresed, feeling well. no dyspnea, no headache or chest pain on discharge. - Vitals & Intake/Output Vital Signs: Vital Signs Temperature 97.7 F 12/16/21 11:55 Pulse Rate 86 12/16/21 11:55 Respiratory Rate 21 12/16/21 11:55 Blood Pressure 151/85 12/16/21 11:55 O2 Sat by Pulse Oximetry 92 L 12/16/21 11:55 Intake & Output: Intake & Output 12/14/21 12/15/21 12/16/21 12/17/21 11:59 11:59 11:59 11:59 Intake Total 360 1260 4196 Output Total 0 900 Balance 734 437 7504 Weight 189 kg 190.2 kg - Lab Result Diagrams: 12/16/21 05:05 12/16/21 05:05 Lab Results-Last 24 Hrs: Lab Results-Last 24 Hours 12/15/21 12/15/21 12/16/21 Range/Units 16:36 21:05 05:05 WBC 7.3 (4.0-10.5) x10^3/uL RBC 4.91 (4.1-5.6) x10^6/uL Hgb 14.4 (12.5-18.0) g/dL Hct 43.9 (42-50) % MCV 89.4 (78-100) fL MCH 29.3 (26-32) pg MCHC 32.8 (32-36) g/dL RDW 12.6 (11.5-14.0) % Plt Count 219 (150-450) x10^3/uL MPV 12.0 H (7.5-11.0) fL Gran % 57.6 (36.0-66.0) % Immature Gran % (Auto) 0.4 (0.00-0.4) % Nucleat RBC Rel Count 0.0 (0.00-0.1) % Eos # (Auto) 0.56 H (0-0.5) x10^3/uL Immature Gran # (Auto) 0.03 (0.00-0.03) x10^3u/L Absolute Lymphs (auto) 1.45 (1.0-4.6) x10^3/uL Absolute Monos (auto) 0.97 (0.0-1.3) x10^3/uL Absolute Nucleated RBC 0.00 (0.00-0.01) x10^3u/L Lymphocytes % 19.9 L (24.0-44.0) % Monocytes % 13.3 H (0.0-12.0) % Eosinophils % 7.7 H (0.00-5.0) % Basophils % 1.1 (0.0-0.4) % Absolute Granulocytes 4.19 (1.4-6.9) x10^3/uL Basophils # 0.08 (0-0.4) x10^3/uL Sodium (137-145) mmol/L Potassium (3.5-5.1) mmol/L Chloride (98-107) mmol/L Carbon Dioxide (22-30) mmol/L Anion Gap (5-15) MEQ/L BUN (9-20) mg/dL Creatinine (0.66-1.25) mg/dL Estimated GFR ML/MIN Glucose (74-106) mg/dL POC Glucometer 299 H 276 H (74 to 106) mg/dL Calcium (8.4-10.2) mg/dL Magnesium (1.6-2.3) mg/dL NT-Pro-B Natriuret Pep (0-450) pg/mL 12/16/21 12/16/21 12/16/21 Range/Units 05:05 06:56 11:17 WBC (4.0-10.5) x10^3/uL RBC (4.1-5.6) x10^6/uL Hgb (12.5-18.0) g/dL Hct (42-50) % MCV (78-100) fL MCH (26-32) pg MCHC (32-36) g/dL RDW (11.5-14.0) % Plt Count (150-450) x10^3/uL MPV (7.5-11.0) fL Gran % (36.0-66.0) % Immature Gran % (Auto) (0.00-0.4) % Nucleat RBC Rel Count (0.00-0.1) % Eos # (Auto) (0-0.5) x10^3/uL Immature Gran # (Auto) (0.00-0.03) x10^3u/L Absolute Lymphs (auto) (1.0-4.6) x10^3/uL Absolute Monos (auto) (0.0-1.3) x10^3/uL Absolute Nucleated RBC (0.00-0.01) x10^3u/L Lymphocytes % (24.0-44.0) % Monocytes % (0.0-12.0) % Eosinophils % (0.00-5.0) % Basophils % (0.0-0.4) % Absolute Granulocytes (1.4-6.9) x10^3/uL Basophils # (0-0.4) x10^3/uL Sodium 135 L (137-145) mmol/L Potassium 3.6 (3.5-5.1) mmol/L Chloride 100 (98-107) mmol/L Carbon Dioxide 31 H (22-30) mmol/L Anion Gap 7.7 (5-15) MEQ/L BUN 19 (9-20) mg/dL Creatinine 0.81 (0.66-1.25) mg/dL Estimated GFR > 60.0 ML/MIN Glucose 272 H (74-106) mg/dL POC Glucometer 251 H 338 H (74 to 106) mg/dL Calcium 8.7 (8.4-10.2) mg/dL Magnesium 2.0 (1.6-2.3) mg/dL NT-Pro-B Natriuret Pep 186 (0-450) pg/mL Micro Results-Entire Visit: Accuchecks Date 12/16/21 Date 12/16/21 Date 12/15/21 Time 11:17 Time 06:56 Time 16:38 - Procedures and Test Procedures and Tests throughout Hospitalization: Therapy Orders & Screens 12/13/21 17:12 Oxygen NASAL CANNULA 2 lpm Comment: Diagnosis: CHF Discharge Exam General Appearance: no apparent distress, obese Neurologic Exam: alert, oriented x 3 Respiratory Exam: normal breath sounds, lungs clear, No respiratory distress Cardiovascular Exam: regular rate/rhythm, normal heart sounds Gastrointestinal/Abdomen Exam: soft, No tenderness, No mass Extremity Exam: normal inspection, normal range of motion Skin Exam: normal color, warm, dry Final Diagnosis/Problem List - Final Discharge Diagnosis/Problem (1) Hypertensive urgency Current Visit: Yes Status: Acute Assessment & Plan: losartan/hctz, amlodipine and clonidine on discharge Code(s): I16.0 - HYPERTENSIVE URGENCY (2) CHF (congestive heart failure) Current Visit: Yes Status: Acute Assessment & Plan: home on lasix 20mg po qday for bp and fluid retention Code(s): I50.9 - HEART FAILURE, UNSPECIFIED (3) Type 2 diabetes mellitus, uncontrolled Current Visit: Yes Status: Acute Assessment & Plan: add jardiance due to chf and poor control with a1c >10%, increase metformin dose Code(s): [id number] - - Discharge Disposition: Home, Self-Care Condition: Stable Prescriptions: New Clonidine HCl 0.1 mg [Clonidine 0.1 mg Tablet] 0.2 mg PO BID #120 tablet Empagliflozin [Jardiance] 10 mg PO DAILY #30 tablet Potassium Chloride Tab* [Klor Con] 10 meq PO DAILY #30 tablet Losartan/Hydrochlorothiazide [Losartan-Hctz 100-12.5 mg Tab] 1 each PO DAILY #30 tablet Continue Aspirin EC 81 mg [Ecotrin 81 mg] 81 mg PO DAILY [place]-3 Fatty Acids/Fish Oil [Fish Oil 1,000 mg Capsule] 1,000 mg PO DAILY Changed Metformin HCl 500 mg [Glucophage 500 MG] 500 mg PO BID #60 tablet Outpatient Orders: Sleep Study Facility: [facility]. Hosp, Location: RESPIRATORY THERAPY Follow up with: DIALLO HENDRIX MD [ACTIVE STAFF] - 1 Week
== END 2021-12-16 13:52 | disposition home or self-care (01) ==
LOC: ED 14:55 → MED SURG 17:39
PROVIDERS: ADMIT Family Medicine; ATTEND Family Medicine
DX: I16.0 Hypertensive urgency (principal); I11.0 Hypertensive heart disease with heart failure; I50.9 Heart failure, unspecified; E11.9 Type 2 diabetes mellitus without complications; E66.9 Obesity, unspecified; Z79.899 Other long term (current) drug therapy; Z20.828 Contact with and (suspected) exposure to other viral communicable diseases
CPT/HCPCS: 36000; 36415; 71045; 80048; 80053; 82947; 83036; 83735; 83880; 84484; 85025; 85027; 85610; 85730; 93005; 93268; 93306; 94760; 96372; 96374; 96375; 99285; G0378; J0360; J1650; J1817; J1940; A9270-GY